=== PATIENT | female | born 1950 | race Hispanic/Latino ===

== ENCOUNTER 2021-09-24 12:24 | Emergency (ER) | payer MEDICARE, OTHER ==
[2021-09-24] MEDS ORDERED: Ketorolac Tromethamine 30 MG/ML VIAL ONE (14:35)
== END 2021-09-24 16:00 | disposition home or self-care (01) ==
LOC: CSHERS 12:24
DX: S40.011A Contusion of right shoulder, initial encounter (principal); M54.2 Cervicalgia; I25.2 Old myocardial infarction; E11.9 Type 2 diabetes mellitus without complications; E78.5 Hyperlipidemia, unspecified; I10 Essential (primary) hypertension; W19.XXXA Unspecified fall, initial encounter
CPT/HCPCS: 72125; 72128; 96372; J1885

== ENCOUNTER 2022-04-27 13:24 | Outpatient (CLI) | payer MEDICARE, OTHER | END 2022-04-27 13:25 | disposition home or self-care (01) | LOC: CSHMAMMO 13:24 | PROVIDERS: ATTEND Family Medicine | DX: Z12.31 Encounter for screening mammogram for malignant neoplasm of breast (principal) | CPT/HCPCS: 77063; 77067 ==

== ENCOUNTER 2022-10-27 14:17 | Outpatient (CLI) | payer MEDICARE, OTHER | END 2022-10-27 14:18 | disposition home or self-care (01) | LOC: CSHMAMMO 14:17 | PROVIDERS: ATTEND Family Medicine | DX: M85.89 Other specified disorders of bone density and structure, multiple sites (principal) | CPT/HCPCS: 77080 ==